=== PATIENT | male | born 1985 | race Caucasian/White ===

== ENCOUNTER → 2016-09-09 | Day surgery (SDC) | payer BC ==
[2016-08-24 07:35] VITALS: Ht 172.7 cm; Wt 63.6 kg
[~2016-09-09] VITALS: Ht 172.7 cm; Wt 63.6 kg
[~2016-09-09] MED LIST: ATROPINE SULFATE 0.1 MG/ML 5ML SYR IV PRN; BACITRACIN 50000 UNIT VIAL ONE; BUPIVACAINE 0.5 % 5 MG/1 ML MPF 30ML VIAL ONE; CEFAZOLIN SOD 1 GM VIAL ONE; DEXAMETHASONE SOD INJ 4 MG/ML VIAL ONE; EpHEDrine SULFATE 50MG/5ML SYR ONE; EpHEDrine SULFATE INJ 50 MG/ML AMP IV PRN; FENTANYL CITRATE INJ 50 MCG/1 ML 2 ML VIAL IV PRN; FENTANYL CITRATE INJ 50 MCG/1 ML 2 ML VIAL ONE; HYDR-5688 PO; HYDROCODONE/ACETAMOPHEN 5/325MG TAB PO PRN; HYDROmorphone INJ 2 MG/ML SYR/VIAL IV PRN; LACTATED RINGER'S 1000ML 1,000 ML IV SCH; LIDOCAINE HCL 2% 2 ML VIAL (20MG/ML) ONE; MIDAZOLAM HCL 1 MG/ML 2ML VIAL ONE; ONDANSETRON INJ 2 MG/ML 2 ML VIAL IV PRN; ONDANSETRON INJ 2 MG/ML 2 ML VIAL ONE; OXYC-57 PO; PROPOFOL IV EMULSION 10 MG/ML 20 ML VIAL IV ONE
--- NOTE | 2016-09-09 06:34 | History & Physical Bridge Note ---
H&P Re-Evaluation Bridge Note: I have examined the patient, reviewed the History & Physical and in the interval since the performance of the History & Physical I have noted the following changes of clinical significance: No changes noted pt marked and new baby bedside
[2016-09-09] MEDS: SODIUM CHLORIDE 0.9% INJ 10 ML VIAL ONE ×2 (07:58→07:59)
--- NOTE | 2016-09-09 08:10 | [facility] Post Operative Brief Note ---
Immediate Operative Summary Operative Date Sep 09, 2016. Pre-Operative Diagnosis Left Inguinal Hernia; Desires Sterilization Post-Operative Diagnosis Same Procedure(s) Performed Left Inguinal Hernia Repair(Silke), Bilateral Vasectomy Surgeon Dr. Bautista Cdl Driver Surgeon(s) None Estimated Blood Loss 5cc Findings indirect hernia Specimens A.) Right Vas Deferens B.) Left Vas Deferens C.) Left Inguinal Indirect Hernia Sac
--- NOTE | 2016-09-09 08:18 | Discharge Instructions ---
Discharge Instructions Date of Service Sep 09, 2016. Visit Reason for Visit: Left Inguinal Hernia; Desire For Sterilization Discharge Discharge Diagnosis / Problem: s/p left ing hernia repair open (bassini) and josh vasectomy Discharge Goals Goal(s): Decrease discomfort Activity Recommendations Activity Limitations: as noted below (no lifting greater than 10 lbs for one week, no driving for one week,) Lifting Limitations: no more than 10 pounds Exercise/Sports Limitations: none May Resume Sexual Activity: after follow-up appointment (and after semen analysis neg until then use protection) Shower/Bathe: tomorrow Anesthesia . Post Anesthesia Instructions: If you have had General Anesthesia or IV Sedation: * Do not drive today. * Resume driving when surgeon permits. * Do not make important decisions or sign legal documents today. * Call surgeon for: 1. Temperature elevations greater than 101 degrees F. 2. Uncontrollable pain. 3. Excessive bleeding. 4. Persistent nausea and vomiting. 5. Medication intolerance (nausea, vomiting or rash). * For nausea and vomiting use only clear liquids such as: tea, soda, bouillon until nausea subsides, then gradually increase diet as tolerated. * If you have any concerns or questions, call your surgeon's office. If physician is unavailable and it is an emergency, call 911 or go to the nearest emergency room. . Diet Recommendations Recommended Home Diet: resume previous diet Procedures Procedures Performed: Left Inguinal Hernia Repair(Bassini), Bilateral Vasectomy Pending Studies Studies pending at discharge: no (call [phone] for any problems, return to office 1 week, icebag to left groin for 24 hrs) Medical Emergencies . Who to Call and When: Medical Emergencies: If at any time you feel your situation is an emergency, please call 911 immediately. . Non-Emergent Contact Non-Emergency issues call your: Primary Care Provider . . "Provider Documentation" section prepared by Nick Bautista. .
--- NOTE | 2016-09-09 08:48 | OPERATIVE REPORT ---
DATE OF OPERATION: 09/09/2016 PREOPERATIVE DIAGNOSIS: Left inguinal hernia, wishes sterilization. POSTOPERATIVE DIAGNOSIS: Left indirect inguinal hernia, wishes sterilization. PROCEDURE: Left indirect inguinal hernia repair (Bassini), bilateral vasectomy. SURGEON: Dr. Bautista. OPERATION AND FINDINGS: SUMMARY: The patient was brought into the operating room theater. The left lower quadrant was prepped as was the scrotum was scrubbed with solution Betadine. Systemic antibiotics was given. We used 0.5% Marcaine without epinephrine to infiltrate 2 fingerbreadths medial anterior superior iliac crest, preemptive analgesia in the subfascial and external oblique. An incision was made parallel to the inguinal ligament, deepened through subcutaneous tissue. The incision was about 3 inches long and went into the subQ. Some vessels were ligated with 2-0 silk. We went onto the external oblique where we took our dissection down to the external ring. More local was used underneath the external oblique. External oblique was opened along its course of fibers to the external ring. The patient had a real fine ilioinguinal nerve that we elevated it and placed it underneath hemostats. At this point, we elevated the cord and its structures and identified that the patient had an indirect hernia. We dissected it out, entered the hernial sac itself, freed it from surrounding spermatic cord. The hernia itself was extending probably about 6 cm from the internal ring. We then ligated with 3-0 silk after resecting some of it and also suture-ligated with 3-0 silk. This was returned internal to internal ring area. At this point then we checked the floor and appeared to be satisfactory. I elected just to proceed with a Bassini repair which we used 2-0 silk suture attaching the transversalis fascia to the shelving portion of the inguinal ligament. The patient had had some fibers of the iliopubic tract, which we incorporated. The internal ring could only accommodate the tip of a hemostat. Hemostasis was satisfactory. Then at this point, I exposed the vas and took approximately 1.5 inches of vas ligating both ends, first dividing it between hemostats and Bovieing the edges and then sutured ligating the edges with 3-0 chromic suture. At this point, we then returned the cord and its structure in normal anatomical position, closed the external oblique with 3-0 silk and 2-0 Vicryl subcutaneous and rhianna for skin edges. The area then that we had prepped in the inguinal canal we then exposed the vas about half inch incision at the most, elevated the vas and similarly we took out about an inch or so of the vas ligating both ends with first Bovieing it and 2-0 chromic suture. We placed a few 2-0 chromic sutures for skin edges. Dressing was applied. The procedure was tolerated well by the patient and was taken to recovery room in good condition. Spec of vas marked separately left and right. I attest to the content of the Intraoperative Record and any orders documented therein. Any exceptions are noted below. DAVID
[2016-09-09 09:07] VITALS: BP 131/86; PULSE 63; TEMP 36.4; O2SAT 100
--- NOTE | 2016-09-09 10:10 | Anesthesia Progress Nt - [facility] ---
Anesthesia Post Op Note Date & Time Sep 09, 2016 at 10:09 Vital Signs Pain Intensity: 4 Vital Signs Past 12 Hours Date Time Temp Pulse Resp B/P Pulse Ox O2 Delivery O2 Flow Rate FiO2 09/09/16 09:07 36.4 63 16 131/86 100 Room Air 09/09/16 08:56 58 12 100 09/09/16 08:56 55 12 09/09/16 08:55 112/84 09/09/16 08:54 126/74 09/09/16 08:54 36.6 57 16 112/84 100 Room Air 09/09/16 08:51 61 13 132/82 100 09/09/16 08:51 64 13 09/09/16 08:47 106/73 09/09/16 08:46 63 12 100 09/09/16 08:46 59 12 09/09/16 08:42 129/49 09/09/16 08:41 61 14 09/09/16 08:41 70 14 98 09/09/16 08:36 58 12 116/67 100 09/09/16 08:36 57 12 09/09/16 08:31 14 09/09/16 08:31 67 14 117/59 09/09/16 08:26 52 22 99 09/09/16 08:26 52 22 09/09/16 08:25 102/57 09/09/16 08:21 53 20 09/09/16 08:21 53 20 99 09/09/16 08:20 100/55 09/09/16 08:16 56 18 99 09/09/16 08:16 56 18 09/09/16 08:15 99/55 09/09/16 08:11 59 09/09/16 08:11 58 98/50 98 09/09/16 08:11 36.3 60 16 98/50 97 Diffusion Mask 6 09/09/16 06:35 36.9 44 18 118/75 100 Room Air Notes Mental Status: alert / awake / arousable, participated in evaluation Pt Amnestic to Procedure: Yes Nausea / Vomiting: adequately controlled Pain: adequately controlled Airway Patency, RR, SpO2: stable & adequate BP & HR: stable & adequate Hydration State: stable & adequate Anesthetic Complications: no major complications apparent
== END | disposition home or self-care (01) ==
LOC: X.SURG 06:21
PROVIDERS: ATTEND Surgery
DX: K40.90 Unilateral inguinal hernia, without obstruction or gangrene, not specified as recurrent (principal); Z30.2 Encounter for sterilization; Z78.9 Other specified health status; Z87.891 Personal history of nicotine dependence; Z83.3 Family history of diabetes mellitus

== ENCOUNTER → 2016-12-06 | Outpatient (CLI) | payer BC ==
[~2016-12-06] MED LIST changes: -ATROPINE SULFATE 0.1 MG/ML 5ML SYR IV PRN; -BACITRACIN 50000 UNIT VIAL ONE; -BUPIVACAINE 0.5 % 5 MG/1 ML MPF 30ML VIAL ONE; -CEFAZOLIN SOD 1 GM VIAL ONE; -DEXAMETHASONE SOD INJ 4 MG/ML VIAL ONE; -EpHEDrine SULFATE 50MG/5ML SYR ONE; -EpHEDrine SULFATE INJ 50 MG/ML AMP IV PRN; -FENTANYL CITRATE INJ 50 MCG/1 ML 2 ML VIAL IV PRN; -FENTANYL CITRATE INJ 50 MCG/1 ML 2 ML VIAL ONE; -HYDROCODONE/ACETAMOPHEN 5/325MG TAB PO PRN; -HYDROmorphone INJ 2 MG/ML SYR/VIAL IV PRN; -LACTATED RINGER'S 1000ML 1,000 ML IV SCH; -LIDOCAINE HCL 2% 2 ML VIAL (20MG/ML) ONE; -MIDAZOLAM HCL 1 MG/ML 2ML VIAL ONE; -ONDANSETRON INJ 2 MG/ML 2 ML VIAL IV PRN; -ONDANSETRON INJ 2 MG/ML 2 ML VIAL ONE; -OXYC-57 PO; -PROPOFOL IV EMULSION 10 MG/ML 20 ML VIAL IV ONE
== END | disposition home or self-care (01) ==
LOC: C.LAB 11:11
PROVIDERS: ATTEND Surgery
DX: Z30.2 Encounter for sterilization (principal)